=== PATIENT | female | born 2000 | race Caucasian/White ===

== ENCOUNTER 2023-01-08 05:38 | Day surgery (SDC) | payer BC ==
[2023-01-04 11:15] VITALS: BMI 20.8
[2023-01-08] MEDS ORDERED: PROPOFOL 20 ML ONE (07:32)
[2023-01-08] MEDS ORDERED: ACETAMINOPHEN 325 MG TABLET (FP) PO PRN (07:32)
[2023-01-08] MEDS ORDERED: IBUPROFEN 400 MG TABLET (FP) PO PRN (07:32)
[2023-01-08] MEDS ORDERED: MIDAZOLAM HCL 2 MG/2 ML SINGLE DOSE VIAL ONE (07:33)
[2023-01-08] MEDS ORDERED: ONDANSETRON 4 MG/2 ML VIAL ONE (07:45)
[2023-01-08] MEDS ORDERED: DEXAMETHASONE SOD PHOSPHATE 4 MG/1 ML VIAL ONE (07:45)
[2023-01-08] MEDS ORDERED: KETOROLAC TROMETHAMINE 30 MG/1 ML VIAL ONE (08:00)
[2023-01-08] MEDS ORDERED: oxyCODONE HCL 5 MG TABLET PO PRN (08:21)
[2023-01-08] MEDS ORDERED: ONDANSETRON 4 MG/2 ML VIAL IVPUSH PRN (08:21)
[2023-01-08] MEDS ORDERED: LACTATED RINGERS SOLUTION 1,000 ML IV SCH (08:30)
[2023-01-08] MEDS ORDERED: ACETAMINOPHEN 1000 MG/100 ML BAG IVPB ONE (09:40)
[2023-01-08 10:49] VITALS: RESP 20
[2023-01-08] MEDS ORDERED: oxyCODONE HCL 5 MG TABLET ONE (11:17)
[2023-01-08] MEDS ORDERED: oxyCODONE HCL 5 MG TABLET PO ONE (11:20)
[2023-01-08 13:54] VITALS: BP 98/52; PULSE 68; TEMP 98
== END 2023-01-08 13:56 | disposition home or self-care (01) ==
LOC: JASU-SURG 05:38
PROVIDERS: ATTEND Obstetrics & Gynecology
PROC: 0U5B8ZZ Destruction of Endometrium, Via Natural or Artificial Opening Endoscopic (ICD-10-PCS; principal; 2023-01-08 07:30)
DX: N92.0 Excessive and frequent menstruation with regular cycle (principal); D25.0 Submucous leiomyoma of uterus; N84.0 Polyp of corpus uteri
CPT/HCPCS: 81025; 88305-TC; 94760